=== PATIENT | female | born 2000 | race Caucasian/White ===

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

== ENCOUNTER 2020-04-01 11:18 | Emergency (ER) | payer OTHER ==
[~2020-04-01] VITALS: Ht 154.9 cm; Wt 49.4 kg
[2020-04-01 11:23] VITALS: BP 119/63
--- NOTE | 2020-04-01 11:28 | NUR ---
PT AMBULATED TO BATHROOM, STEADY GAIT.
--- NOTE | 2020-04-01 11:39 | NUR ---
Dr. Batista is evaluating the patient at bedside.
--- NOTE | 2020-04-01 11:40 | NUR ---
19 Y/O FEMALE C/O DIZZINESS AND NAUSEA THAT BEGAN ON WEDNESDAY. DENIES ANY EPISODES OF EMESIS, DIARRHEA, OR VAGINAL BLEEDING. RESP EVEN AND UNLABORED. DENIES ANY PAIN. DENIES COUGH/FEVER/CHILLS. VSS. ABD SOFT/NON DISTENDED. BOWEL SOUNDS NORMOACTIVE IN ALL QUADRANTS.
[2020-04-01 12:04] VITALS: BP 119/63
--- NOTE | 2020-04-01 12:04 | NUR ---
Patient discharged with v/s stable. Written and verbal after care instructions given and explained. Patient alert, oriented and verbalized understanding of instructions. Ambulatory with steady gait. All questions addressed prior to discharge. ID band removed. Patient advised to follow up with PMD. Rx of MECLIZINE HYDROCHLORIDE given. Patient educated on indication of medication including possible reaction and side effects. Opportunity to ask questions provided and answered.
== END 2020-04-01 12:04 | disposition home or self-care (01) ==
LOC: MED 11:18
DX: R42 Dizziness and giddiness (principal); R11.0 Nausea; R51 Headache
CPT/HCPCS: 81002; 81025; 99282

== ENCOUNTER 2020-06-23 17:40 | Emergency (ER) | payer OTHER ==
[~2020-06-23] VITALS: Ht 157.5 cm; Wt 49.9 kg
[2020-06-23 17:47] VITALS: BP 118/75
--- NOTE | 2020-06-23 17:48 | NUR ---
19 YEAR OLD FEMALE COMPLAINS OF HEADACHE, DIZZY, COUGH X 7 DAYS. PT STATES HEADACHE HAS BEEN GETTING WORSE AND RANDOMLY FEELS DIZZY. PT AOX4, BREATHING EVEN AND UNLABORED, SKIN WARM AND DRY. BED IN LOWEST POSITION, LOCKED, BED RAIL UPX1. PMH - DENIES ALLERGIES - NKA
--- NOTE | 2020-06-23 19:00 | NUR ---
Note carlitos in EDM - 06/23/20 at 1902 by KAMAR Patient discharged with v/s stable. Written and verbal after care instructions about back pain, sciatica given and explained. Patient alert, oriented and verbalized understanding of instructions. Ambulatory with steady gait. All questions addressed prior to discharge. ID band removed. Patient advised to follow up with PMD. Rx of naprosyn and robaxin given. Patient educated on indication of medication including possible reaction and side effects. Opportunity to ask questions provided and answered.
--- NOTE | 2020-06-23 19:00 | NUR ---
Patient discharged with v/s stable. Written and verbal after care instructions about upper respiratory infection, covid 19, and 1st trimester given and explained. Patient alert, oriented and verbalized understanding of instructions. Ambulatory with steady gait. All questions addressed prior to discharge. ID band removed. Patient advised to follow up with PMD. Rx of FLUTICASONE, TYLENOL given. Patient educated on indication of medication including possible reaction and side effects. Opportunity to ask questions provided and answered.
[2020-06-23 19:01] VITALS: BP 118/75
== END 2020-06-23 19:00 | disposition home or self-care (01) ==
LOC: MED 17:40
DX: O99.511 Diseases of the respiratory system complicating pregnancy, first trimester (principal); Z20.828 Contact with and (suspected) exposure to other viral communicable diseases; J06.9 Acute upper respiratory infection, unspecified; R42 Dizziness and giddiness
CPT/HCPCS: 81025; 99283; U0003

== ENCOUNTER 2020-07-08 11:25 | Emergency (ER) | payer OTHER ==
[~2020-07-08] VITALS: Ht 154.9 cm; Wt 49.0 kg
[2020-07-08 11:40] VITALS: BP 112/66
--- NOTE | 2020-07-08 11:53 | NUR ---
Dick urbian in [facility] - 07/08/20 at 1159 by JIMMIE PT TAKEN TO BED 10.
--- NOTE | 2020-07-08 11:58 | NUR ---
Patient ambulated to bed 10. RN evaluating patient at bedside.
--- NOTE | 2020-07-08 11:59 | NUR ---
19 YO FEMALE PRESENTS TO THE ER WITH APPROX 8 WKS , A0, PT C/O CONSISTENT NAUSEA AND VOMITING SINCE YESTERDAY. PT STATES DR. ENRIQUE REFFERED HER TO ER. DENIES ANY VAGINAL BLEEDING/DISCHARGE/PAIN. JEEVAN: 02/15/2021. HX: NONE RX: NONE
[2020-07-08 12:02] LABS: BASOPHILS % (AUTO) 0.3 % (0.0-2.0); EOSINOPHILS % (AUTO) 0.4 % (0.0-4.0); HEMATOCRIT 36.8 % (36-48); HEMOGLOBIN 12.8 g/dL (12.0-16.0); LYMPHOCYTES # (AUTO) 2.4 K/uL (2.5-16.5); LYMPHOCYTES % (AUTO) 19.9 % (20.5-51.1); MEAN CORPUSCULAR HEMOGLOBIN 30 pg (27-31); MEAN CORPUSCULAR HGB CONC 35 g/dL (33-37); MEAN CORPUSCULAR VOLUME 87.3 fL (80-94); MONOCYTES # (AUTO) 0.9 K/uL (0.8-1.0); MONOCYTES % (AUTO) 7.1 % (1.7-9.3); NEUTROPHILS # (AUTO) 8.7 K/uL (1.8-7.7); NEUTROPHILS % (AUTO) 72.3 % (42.2-75.2); PLATELET COUNT (AUTO) 213 K/uL (140-450); RED BLOOD CELL COUNT(AUTO) 4.21 MIL/uL (4.20-5.40); RED CELL DISTRIBUTION WIDTH 12.4 % (11.6-13.7)
[2020-07-08] MEDS ORDERED: NACL 0.9% 1,000 ML IV ONE (12:10)
[2020-07-08] MEDS ORDERED: ONDANSETRON 4 MG/2 ML VIAL IVP ONE (12:10)
[2020-07-08 12:19] LABS: ALBUMIN 4.1 g/dL (3.4-5.0); ANION GAP 13.9 (8-16); CARBON DIOXIDE 23.6 mmol/L (21-32); CREATININE 0.4 mg/dL (0.6-1.3); POTASSIUM 3.5 mmol/L (3.5-5.1); TOTAL BILIRUBIN 0.5 mg/dL (0.0-1.0)
[2020-07-08 15:23] VITALS: BP 108/61
--- NOTE | 2020-07-08 15:23 | NUR ---
Patient discharged with v/s stable. Written and verbal after care instructions given and explained. Patient alert, oriented and verbalized understanding of instructions. Ambulatory with steady gait. All questions addressed prior to discharge. ID band removed. Patient advised to follow up with PMD. Rx of Diclegis given. Patient educated on indication of medication including possible reaction and side effects. Opportunity to ask questions provided and answered.
== END 2020-07-08 15:23 | disposition home or self-care (01) ==
LOC: MED 11:25
DX: O21.0 Mild hyperemesis gravidarum (principal); Z3A.08 8 weeks gestation of pregnancy
CPT/HCPCS: 36415; 76801; 80053; 81002; 81025; 85025; 96361; 96374; 99284; J2405; J7030

== ENCOUNTER 2020-08-17 16:47 | Emergency (ER) | payer OTHER ==
[~2020-08-17] VITALS: Ht 157.5 cm; Wt 48.1 kg
[2020-08-17] MEDS ORDERED: ONDANSETRON 4 MG ODT PO ONE (17:20)
[2020-08-17] MEDS ORDERED: ACETAMINOPHEN 325 MG TAB PO ONE (17:20)
[2020-08-17 17:30] VITALS: BP 109/62
--- NOTE | 2020-08-17 17:33 | NUR ---
C/O N/V, LOWER ABD PAIN 6/10 X YESTERDAY. 14 WEEKS. LMP 05/12/20
[2020-08-17 18:15] LABS: APPEARANCE,URINE HAZY (CLEAR); BILIRUBIN,URINE 1+ (NEGATIVE); BLOOD, URINE NEGATIVE (NEGATIVE); COLOR,URINE YELLOW (YELLOW); LEUKOCYTE ESTERASE ,URINE 1+ (NEGATIVE); NITRITE, URINE NEGATIVE (NEGATIVE); PH,URINE 5.5 (5.0-9.0); UGLUCOSE NEGATIVE (NEGATIVE)
[2020-08-17 18:26] LABS: RBC,URINE NONE SEEN /HPF (0-5); WBC,URINE 20-60 /HPF (0-5)
[2020-08-17 19:20] VITALS: BP 121/76
--- NOTE | 2020-08-17 19:20 | NUR ---
Patient discharged with v/s stable. Written and verbal after care instructions given and explained. Patient alert, oriented and verbalized understanding of instructions. Ambulatory with steady gait. All questions addressed prior to discharge. ID band removed. Patient advised to follow up with PMD. Rx of REGLAN, NITROFURANTOIN,DICLEGIS given. Patient educated on indication of medication including possible reaction and side effects. Opportunity to ask questions provided and answered.
== END 2020-08-17 19:20 | disposition home or self-care (01) ==
LOC: MED 16:47
DX: O23.41 Unspecified infection of urinary tract in pregnancy, first trimester (principal); O21.8 Other vomiting complicating pregnancy; O99.351 Diseases of the nervous system complicating pregnancy, first trimester; R51.9 Headache, unspecified; Z3A.14 14 weeks gestation of pregnancy
CPT/HCPCS: 81001; 87086; 99283; Q0162; 84702

== ENCOUNTER 2020-10-24 23:05 | Inpatient (IN) | payer OTHER ==
[~2020-10-24] VITALS: Ht 157.5 cm; Wt 53.1 kg
[2020-10-24 23:30] VITALS: BP 124/64
[2020-10-25 00:48] LABS: APPEARANCE,URINE CLOUDY (CLEAR)
[2020-10-25 00:49] LABS: BILIRUBIN,URINE 1+ (NEGATIVE); BLOOD, URINE 3+ (NEGATIVE); COLOR,URINE RED (YELLOW); NITRITE, URINE NEGATIVE (NEGATIVE); UGLUCOSE NEGATIVE (NEGATIVE)
[2020-10-25 00:50] LABS: LEUKOCYTE ESTERASE ,URINE TRACE (NEGATIVE)
[2020-10-25 00:52] LABS: RBC,URINE TOO NUMEROUS TO COUN /HPF (0-5); WBC,URINE 0-5 /HPF (0-5)
[2020-10-25 00:53] LABS: URINE AMORPHOUS URATE 1+ /HPF (None Seen)
[2020-10-25] MEDS ORDERED: MORPHINE SULFATE 5 MG/ML VIAL IM PRN (01:25)
[2020-10-25] MEDS ORDERED: PROMETHAZINE 25 MG/ML VIAL IM PRN (01:25)
[2020-10-25] MEDS ORDERED: PROMETHAZINE 25 MG/ML VIAL ONE (01:33)
[2020-10-25] MEDS ORDERED: MORPHINE SULFATE 10 MG/ML VIAL ONE ×3 (01:33→19:40)
--- NOTE | 2020-10-25 08:24 | NUR ---
PATIENT HAS BEEN SCREENED AND CATEGORIZED LOW NUTRITION RISK. PATIENT WILL BE SEEN WITHIN 7 DAYS OF ADMISSION. 10/31/[address]
[2020-10-25] MEDS ORDERED: ONDANSETRON 4 MG/2 ML VIAL IVP PRN (10:55)
[2020-10-25 12:36] VITALS: BP 120/73
[2020-10-25] MEDS: NACL 0.9% 1,000 ML IV SCH (19:31)
[2020-10-25] MEDS ORDERED: ceFAZolin 1,000 MG VIAL ONE (23:15)
[2020-10-25] MEDS ORDERED: cefTRIAXone 1,000 MG VIAL ONE (23:22)
[2020-10-26] MEDS ORDERED: MORPHINE SULFATE 10 MG/ML VIAL ONE ×2 (00:03→09:15)
[2020-10-26] MEDS: MORPHINE SULFATE 5 MG/ML VIAL IVP PRN ×2 (00:09→09:20)
[2020-10-26] MEDS: NACL 0.9% 1,000 ML IV SCH (05:48)
[2020-10-26 15:15] LABS: BASOPHILS % (AUTO) 0.3 % (0.0-2.0); EOSINOPHILS % (AUTO) 0.3 % (0.0-4.0); HEMATOCRIT 30.2 % (36-48); HEMOGLOBIN 10.6 g/dL (12.0-16.0); LYMPHOCYTES # (AUTO) 1.2 K/uL (2.5-16.5); LYMPHOCYTES % (AUTO) 13.9 % (20.5-51.1); MEAN CORPUSCULAR HEMOGLOBIN 32 pg (27-31); MEAN CORPUSCULAR HGB CONC 35 g/dL (33-37); MEAN CORPUSCULAR VOLUME 90.9 fL (80-94); MONOCYTES # (AUTO) 0.8 K/uL (0.8-1.0); MONOCYTES % (AUTO) 8.9 % (1.7-9.3); NEUTROPHILS # (AUTO) 6.8 K/uL (1.8-7.7); NEUTROPHILS % (AUTO) 76.6 % (42.2-75.2); PLATELET COUNT (AUTO) 191 K/uL (140-450); RED BLOOD CELL COUNT(AUTO) 3.32 MIL/uL (4.20-5.40); RED CELL DISTRIBUTION WIDTH 12.5 % (11.6-13.7); WHITE BLOOD COUNT (AUTO) 8.9 K/uL (4.5-11.0)
[2020-10-26 15:32] LABS: ALBUMIN 2.8 g/dL (3.4-5.0); ANION GAP 12.4 (8-16); CARBON DIOXIDE 27.2 mmol/L (21-32); CREATININE 0.4 mg/dL (0.6-1.3); POTASSIUM 3.6 mmol/L (3.5-5.1); TOTAL BILIRUBIN 0.1 mg/dL (0.0-1.0)
== END 2020-10-26 16:25 | disposition home or self-care (01) | DRG 566 ==
LOC: MFCC 23:05 → OBSVTOIN 10-25 15:30
PROVIDERS: ADMIT Obstetrics & Gynecology; ATTEND Obstetrics & Gynecology
DX: O23.02 Infections of kidney in pregnancy, second trimester (principal); Z3A.23 23 weeks gestation of pregnancy
CPT/HCPCS: G0378 ×16; 36415; 80053; 81000; 81001; 85025; 87086; 96361; 96372; 96374; 96375; J0690; J0696; J2270; J2550; J7060

== ENCOUNTER 2021-01-20 19:47 | Observation (INO) | payer OTHER, SELFPAY ==
[~2021-01-20] VITALS: Ht 157.5 cm; Wt 59.4 kg
[~2021-01-20 19:47] MED LIST: PNV91TAB8 PO
[2021-01-20 20:00] VITALS: BP 140/70
[2021-01-20] MEDS ORDERED: LACTATED RINGERS 500 ML IV ONE (20:30)
[2021-01-20] MEDS ORDERED: LACTATED RINGERS 1,000 ML IV SCH (20:30)
[2021-01-20] MEDS ORDERED: ONDANSETRON 4 MG/2 ML VIAL IVP PRN (20:50)
[2021-01-20] MEDS ORDERED: MORPHINE SULFATE 5 MG/ML VIAL IVP PRN (20:50)
[2021-01-20 21:07] LABS: APPEARANCE,URINE SL CLOUDY (CLEAR); BILIRUBIN,URINE NEGATIVE (NEGATIVE); BLOOD, URINE 3+ (NEGATIVE); COLOR,URINE YELLOW (YELLOW); LEUKOCYTE ESTERASE ,URINE 3+ (NEGATIVE); NITRITE, URINE NEGATIVE (NEGATIVE); UGLUCOSE NEGATIVE (NEGATIVE)
[2021-01-20] MEDS ORDERED: MORPHINE SULFATE 10 MG/ML VIAL ONE (21:18)
[2021-01-20 21:20] LABS: RBC,URINE 0-5 /HPF (0-5); WBC,URINE 16-25 (MOD) /HPF (0-5)
[2021-01-20 21:22] LABS: URIC ACID CRYSTALS,URINE 0-10 /HPF (None Seen)
[2021-01-20 21:33] VITALS: BP 124/74
[2021-01-20] MEDS ORDERED: cefTRIAXone 1,000 MG VIAL ONE (22:50)
[2021-01-20] MEDS ORDERED: NACL 0.9% 500 ML IV ONE (22:50)
[2021-01-20] MEDS: NACL 0.9% 1,000 ML IV SCH (23:00)
[2021-01-21] MEDS: NACL 0.9% 1,000 ML IV SCH (06:24)
== END 2021-01-21 08:52 | disposition home or self-care (01) ==
LOC: MLD 19:47
PROVIDERS: ADMIT Obstetrics & Gynecology; ATTEND Obstetrics & Gynecology
DX: O62.9 Abnormality of forces of labor, unspecified (principal); Z20.822 Contact with and (suspected) exposure to COVID-19; Z87.440 Personal history of urinary (tract) infections; Z3A.36 36 weeks gestation of pregnancy
CPT/HCPCS: 36415; 76815; 76817; 81001; 82731; 87086; 87426; 87653; 96361; 96374; G0378; J0696; J2270; J2405; J7060

== ENCOUNTER 2021-01-25 00:28 | Observation (INO) | payer OTHER, SELFPAY ==
[~2021-01-25] VITALS: Ht 157.5 cm; Wt 61.2 kg
[2021-01-25 00:51] VITALS: BP 122/74
[2021-01-25] MEDS: LACTATED RINGERS 1,000 ML IV SCH ×3 (02:15→14:10)
[2021-01-25] MEDS ORDERED: MORPHINE SULFATE 4 MG/ML SYR ONE (04:00)
[2021-01-25] MEDS ORDERED: MORPHINE SULFATE 5 MG/ML VIAL IM SCH (04:00)
[2021-01-25] MEDS ORDERED: MORPHINE SULFATE 5 MG/ML VIAL IVP SCH (04:00)
[2021-01-25] MEDS ORDERED: ONDANSETRON 4 MG/2 ML VIAL IVP PRN (04:00)
[2021-01-25] MEDS ORDERED: MORPHINE SULFATE 10 MG/ML VIAL ONE (04:22)
[2021-01-25 04:28] VITALS: BP 124/79
[2021-01-25] MEDS ORDERED: ACETAMINOPHEN 325 MG TAB ONE (05:16)
[2021-01-25] MEDS ORDERED: ACETAMINOPHEN 325 MG TAB PO STA (05:18)
--- NOTE | 2021-01-25 06:38 | NUR ---
PATIENT HAS BEEN SCREENED AND CATEGORIZED LOW NUTRITION RISK. PATIENT WILL BE SEEN WITHIN 7 DAYS OF ADMISSION. 01/31/[address]
[2021-01-25] MEDS ORDERED: NALBUPHINE 10 MG/ML AMP IVP PRN (13:05)
[2021-01-25] MEDS ORDERED: PROMETHAZINE 25 MG/ML VIAL IVP PRN (13:05)
[2021-01-25 17:12] LABS: APPEARANCE,URINE CLEAR (CLEAR); BILIRUBIN,URINE NEGATIVE (NEGATIVE); BLOOD, URINE 2+ (NEGATIVE); COLOR,URINE YELLOW (YELLOW); LEUKOCYTE ESTERASE ,URINE 1+ (NEGATIVE); NITRITE, URINE NEGATIVE (NEGATIVE); UGLUCOSE NEGATIVE (NEGATIVE)
[2021-01-25 17:39] LABS: RBC,URINE 20-50 /HPF (0-5)
[2021-01-25] MEDS ORDERED: NACL 0.9% 1,000 ML IV SCH (18:45)
[2021-01-25] MEDS ORDERED: cefTRIAXone 1,000 MG VIAL ONE (19:29)
== END 2021-01-25 21:47 | disposition home or self-care (01) ==
LOC: MLD 00:28
PROVIDERS: ADMIT Obstetrics & Gynecology; ATTEND Obstetrics & Gynecology
DX: O60.03 Preterm labor without delivery, third trimester (principal); O26.893 Other specified pregnancy related conditions, third trimester; R51.9 Headache, unspecified; Z87.448 Personal history of other diseases of urinary system; Z96.0 Presence of urogenital implants; Z3A.36 36 weeks gestation of pregnancy
CPT/HCPCS: 59025; 81001; 87086; 96361; 96374; 96375; G0378; J0696; J2270; J2300; J2550; J7060

== ENCOUNTER 2021-06-23 11:38 | Emergency (ER) | payer OTHER, SELFPAY ==
[~2021-06-23] VITALS: Ht 154.9 cm; Wt 50.5 kg
[2021-06-23 11:51] VITALS: BP 105/69
[2021-06-23] MEDS ORDERED: NITR100C7 PO (11:55)
--- NOTE | 2021-06-23 12:00 | NUR ---
20 Y/O FEMALE BIB SELF C/O LIGHT VAGINAL BLEEDING X AM G2,P1,MIS/AB0. PAIN 0/10. LMP 05/12/21. PT STATES SPOTTING, NO PAIN UPON URINATION. MEDHX: DENIES NKA
--- NOTE | 2021-06-23 12:51 | NUR ---
WET MOUNT COLLECTED PER ERMD, SPECIMEN SENT TO LAB [facility]
--- NOTE | 2021-06-23 12:51 | NUR ---
Pelvic exam performed by DR WATERS with ASHER FRAZIER at bedside for entire examination. Patient tolerated procedure WELL. Patient assisted to position of comfort after examination.
--- NOTE | 2021-06-23 12:55 | NUR ---
LAB AT BEDSIDE
--- NOTE | 2021-06-23 13:19 | NUR ---
Ultrasound at bedside.
[2021-06-23 14:32] VITALS: BP 105/69
--- NOTE | 2021-06-23 14:32 | NUR ---
Patient discharged with v/s stable. Written and verbal after care instructions given and explained. Patient alert, oriented and verbalized understanding of instructions. Ambulatory with steady gait. All questions addressed prior to discharge. ID band removed. Patient advised to follow up with PMD. Opportunity to ask questions provided and answered.
== END 2021-06-23 14:32 | disposition home or self-care (01) ==
LOC: MED 11:38
DX: O46.91 Antepartum hemorrhage, unspecified, first trimester (principal); Z3A.01 Less than 8 weeks gestation of pregnancy; Z79.899 Other long term (current) drug therapy; Z79.2 Long term (current) use of antibiotics
CPT/HCPCS: 36415; 76801; 84702; 86901; 87210; 99284; Q0092; 81002; 81025

== ENCOUNTER 2022-08-10 14:06 | Inpatient (IN) | payer OTHER ==
[~2022-08-10] VITALS: Ht 157.5 cm; Wt 49.9 kg
[~2022-08-10 14:06] MED LIST changes: +NITR100C7 PO
[2022-08-10 14:14] VITALS: BP 105/63
--- NOTE | 2022-08-10 14:20 | NUR ---
PT AMBULATED TO BED 3. URINE COLLECTED
[2022-08-10 15:24] LABS: BASOPHILS % (AUTO) 0.3 % (0.0-2.0); EOSINOPHILS % (AUTO) 0.4 % (0.0-4.0); HEMATOCRIT 31.2 % (36-48); HEMOGLOBIN 11.1 g/dL (12.0-16.0); LYMPHOCYTES # (AUTO) 1.8 K/uL (2.5-16.5); MEAN CORPUSCULAR HEMOGLOBIN 31 pg (27-31); MEAN CORPUSCULAR HGB CONC 36 g/dL (33-37); MEAN CORPUSCULAR VOLUME 87.3 fL (80-94); MONOCYTES # (AUTO) 0.6 K/uL (0.8-1.0); NEUTROPHILS # (AUTO) 7.4 K/uL (1.8-7.7); NEUTROPHILS % (AUTO) 75.3 % (42.2-75.2); PLATELET COUNT (AUTO) 240 K/uL (140-450); RED BLOOD CELL COUNT(AUTO) 3.57 MIL/uL (4.20-5.40); RED CELL DISTRIBUTION WIDTH 13.8 % (11.6-13.7); WHITE BLOOD COUNT (AUTO) 9.8 K/uL (4.8-10.8)
[2022-08-10 15:49] LABS: ANION GAP 10.8 (8-16); CARBON DIOXIDE 25.9 mmol/L (21-32); CREATININE 0.4 mg/dL (0.6-1.3); POTASSIUM 3.7 mmol/L (3.5-5.1); TOTAL BILIRUBIN 0.2 mg/dL (0.0-1.0)
[2022-08-10] MEDS ORDERED: NACL 0.9% 1,000 ML IV ONE (16:40)
[2022-08-10 16:47] LABS: BILIRUBIN,URINE NEGATIVE (NEGATIVE); BLOOD, URINE NEGATIVE (NEGATIVE); COLOR,URINE YELLOW (YELLOW); LEUKOCYTE ESTERASE ,URINE 2+ (NEGATIVE); NITRITE, URINE NEGATIVE (NEGATIVE); UGLUCOSE NEGATIVE (NEGATIVE)
[2022-08-10 16:55] LABS: APPEARANCE,URINE HAZY (CLEAR)
[2022-08-10] MEDS ORDERED: ACETAMINOPHEN EXTRA STRENGTH 500 MG TAB PO ONE (17:05)
[2022-08-10 17:07] LABS: RBC,URINE NONE SEEN /HPF (0-5)
[2022-08-10] MEDS ORDERED: POTASSIUM CHLORIDE 10 MEQ TABER PO PRN (17:35)
[2022-08-10] MEDS ORDERED: ZOLPIDEM 5 MG TAB PO PRN (17:35)
[2022-08-10] MEDS ORDERED: KCL 20 MEQ/WATER INJ PREMIX 200 ML IV PRN (17:35)
[2022-08-10] MEDS ORDERED: HYDROcodone/APAP 5/325 MG 1 TAB TAB PO PRN (17:35)
[2022-08-10] MEDS ORDERED: ONDANSETRON 4 MG/2 ML VIAL IVP PRN (17:35)
[2022-08-10] MEDS ORDERED: ACETAMINOPHEN 325 MG TAB PO PRN (17:35)
[2022-08-10] MEDS ORDERED: MAG SULF 2000 MG/WATER PREMIX 50 ML IV PRN (17:35)
[2022-08-10] MEDS ORDERED: MORPHINE SULFATE 4 MG/ML SYR IVP PRN (17:35)
[2022-08-10] MEDS ORDERED: cefTRIAXone 1,000 MG VIAL ONE (17:39)
--- NOTE | 2022-08-10 18:40 | NUR ---
PT MOVED TO ER BED 9
[2022-08-10] MEDS: NACL 0.9% 1,000 ML IV SCH (18:47)
--- NOTE | 2022-08-10 19:18 | NUR ---
Pt report given to FREDDIE WALTER. Transfer of care at this time.
--- NOTE | 2022-08-10 23:10 | NUR ---
Patient will be admitted to care of ADRIENNE RASCON. Admited to MED/SURG. Will go to room 125A. Belongings list completed. Report to CECILY FRAZIER. Addendum: 08/10/22 at 2312 by [email or web address] Patient will be admitted to care of ADRIENNE RASCON. Admited to TELEMETRY. Will go to room 125A. Belongings list completed. Report to CECILY FRAZIER
--- NOTE | 2022-08-10 23:20 | NUR ---
RECEIVED PATIENT FROM ER, CAME VIA GURNEY, PATIENT IS AWAKE, ALERT AND ORIENTED X4. NO SIGNS OF DISTRESS NOTED, ON ROOM AIR, DENIES PAIN UPON ASSESSMENT. PATIENT ADMITTED FOR DIAGNOSIS OF PYELONEPHRITIS AND RIGHT HYDRONEPHROSIS, NO KNOWN DRUG ALLERGY, IS CONTINENT OF BOWEL AND BLADDER, USES THE RESTROOM, GAIT IS STEADY. PATIENT HAS IV ACCESS SITE ON LEFT WRIST G20, INTACT AND PATENT, FLUSH WITHOUT RESISTANCE, RUNNING NS @100ML/HR. ORIENTED PATIENT TO ROOM. CALL LIGHT WITHIN REACH, BED LOCKED AND IN LOW POSITION.
[2022-08-11] VITALS: BP 105/65
[2022-08-11 00:39] VITALS: BP 105/65
--- NOTE | 2022-08-11 02:06 | NUR ---
PATIENT IS ASLEEP, NO SIGNS PAIN/DISCOMFORT NOTED, BREATHING EVEN AND NON LABORED ON ROOM AIR. CALL LIGHT WITHIN REACH. SAFETY PRECAUTIONS IN PLACE. WILL CONTINUE TO MONITOR THE PATIENT.
[2022-08-11] MEDS: NACL 0.9% 1,000 ML IV SCH ×3 (03:48→21:51)
[2022-08-11 04:00] VITALS: BP 99/61
--- NOTE | 2022-08-11 04:10 | NUR ---
VITALS TAKEN T 97.9, P 82, BP 99/61, RESP 17 AND O2 SATS 985 ON ROOM AIR. NO SIGNS OF PAIN NOTED, NO SIGNS OF DISTRESS NOTED. CALL LIGHT WITHIN REACH. WILL CONTINUE TO MONITOR THE PATIENT.
[2022-08-11 05:44] LABS: BASOPHILS % (AUTO) 0.5 % (0.0-2.0); EOSINOPHILS # (AUTO) 0.1 K/uL (0-0.4); EOSINOPHILS % (AUTO) 0.7 % (0.0-4.0); HEMATOCRIT 28.3 % (36-48); HEMOGLOBIN 9.9 g/dL (12.0-16.0); LYMPHOCYTES # (AUTO) 2.7 K/uL (2.5-16.5); LYMPHOCYTES % (AUTO) 33.1 % (20.5-51.1); MEAN CORPUSCULAR HEMOGLOBIN 31 pg (27-31); MEAN CORPUSCULAR HGB CONC 35 g/dL (33-37); MEAN CORPUSCULAR VOLUME 87.5 fL (80-94); MONOCYTES # (AUTO) 0.6 K/uL (0.8-1.0); MONOCYTES % (AUTO) 7.6 % (1.7-9.3); NEUTROPHILS # (AUTO) 4.8 K/uL (1.8-7.7); NEUTROPHILS % (AUTO) 58.1 % (42.2-75.2); PLATELET COUNT (AUTO) 203 K/uL (140-450); RED BLOOD CELL COUNT(AUTO) 3.23 MIL/uL (4.20-5.40); WHITE BLOOD COUNT (AUTO) 8.3 K/uL (4.8-10.8)
[2022-08-11 06:18] LABS: ANION GAP 9.5 (8-16); CARBON DIOXIDE 25.8 mmol/L (21-32); CREATININE 0.3 mg/dL (0.6-1.3); POTASSIUM 4.3 mmol/L (3.5-5.1)
--- NOTE | 2022-08-11 07:04 | NUR ---
NO ACUTE EVENT THROUGHOUT THE NIGHT. PATIENT STABLE AND NOT ON ANY DISTRESS. NO COMPLAIN AT THIS TIME. ALL NEEDS ATTENDED. WILL ENDORSE THE PT TO THE ONCOMING NURSE FOR CONTINUITY OF CARE.
--- NOTE | 2022-08-11 07:24 | NUR ---
ENDORSED PATIENT TO DAY NURSE FOR CONTINUITY OF CARE. PATIENT IS STABLE.
--- NOTE | 2022-08-11 10:55 | NUR ---
PATIENT HAS BEEN SCREENED AND CATEGORIZED LOW NUTRITION RISK. PATIENT WILL BE SEEN WITHIN 7 DAYS OF ADMISSION. 08/17/22 REVIEW[address]
--- NOTE | 2022-08-11 19:35 | NUR ---
RECEIVED PT. W/ ON GOING , JESSICA WISEMAN , CALL LIGHT WITHIN REACH , SLEEPING BUT AROUSABLE BY CALLING HER NAME , W/ LA NENA ALLEN - CLEAR U.O , WILL CONT. TO MONITOR . Addendum: 08/12/22 at 0609 by Tory Tobar RN RECIEVED IVF AT [facility] - MINOO
[2022-08-11 20:00] VITALS: BP 100/60
--- NOTE | 2022-08-11 21:50 | NUR ---
PER PHARMACIST - HEP . SODIUM 5, 000 SQ IS SAFE FOR WOMAN . PT REQUESTED TO ADMINISTER THE HEPARIN ON HER R LATERAL UPPER ARM INSTEAD OF ABD. PER PHARMACIST IT IS BETTER ON FATTY AREAS LIKE THIGH BUT IF THE PT INSISTING ON THE UPPER ARM IT IS OK - WILL CARRY OUT . Addendum: 08/11/22 at 2225 by Tory Tobar RN AT 2200 INSPITE OF INFO GIVEN TO PT WHICH BETTER TO GIVE HEP , SQ ON THIGH , BUT THE PT INSISTING TO GIVE IT TO HER R LATERAL UPPER ARM .
[2022-08-12] VITALS: BP 110/76
--- NOTE | 2022-08-12 | NUR ---
ROUNDS , NO COMPLAIN MADE , CALL LIGHT WITHIN REACH .
--- NOTE | 2022-08-12 06:15 | NUR ---
ASK OB STAFF NURSE TO COME HERE TO TAKE FHR , OB STA[facility]UR[facility] .
--- NOTE | 2022-08-12 06:44 | NUR ---
FHR 146 BY DOPPLER TAKEN BY OB STAFF , WILL CONT. TO MONITOR .
--- NOTE | 2022-08-12 07:47 | NUR ---
ENDORSED PT. FOR CONT. OF CARE .
[2022-08-12 08:00] VITALS: BP 100/57
[2022-08-12 08:08] LABS: BASOPHILS % (AUTO) 0.3 % (0.0-2.0); EOSINOPHILS % (AUTO) 0.5 % (0.0-4.0); HEMATOCRIT 29.1 % (36-48); HEMOGLOBIN 10.2 g/dL (12.0-16.0); LYMPHOCYTES # (AUTO) 1.7 K/uL (2.5-16.5); LYMPHOCYTES % (AUTO) 19.1 % (20.5-51.1); MEAN CORPUSCULAR HEMOGLOBIN 31 pg (27-31); MEAN CORPUSCULAR HGB CONC 35 g/dL (33-37); MEAN CORPUSCULAR VOLUME 88.7 fL (80-94); MONOCYTES # (AUTO) 0.5 K/uL (0.8-1.0); MONOCYTES % (AUTO) 5.9 % (1.7-9.3); NEUTROPHILS # (AUTO) 6.7 K/uL (1.8-7.7); NEUTROPHILS % (AUTO) 74.2 % (42.2-75.2); PLATELET COUNT (AUTO) 187 K/uL (140-450); RED BLOOD CELL COUNT(AUTO) 3.28 MIL/uL (4.20-5.40); RED CELL DISTRIBUTION WIDTH 14.3 % (11.6-13.7); WHITE BLOOD COUNT (AUTO) 9.1 K/uL (4.8-10.8)
[2022-08-12 08:32] LABS: ANION GAP 13.5 (8-16); CARBON DIOXIDE 23.2 mmol/L (21-32); CREATININE 0.4 mg/dL (0.6-1.3); POTASSIUM 3.7 mmol/L (3.5-5.1)
--- NOTE | 2022-08-12 09:00 | NUR ---
DC PLANNING LATE ENTRY PT SEEN 08/11 AT 1130AM STANISLAV MET WITH PT AT BEDSIDE TO COMPLETE ASSESSMENT. PT RESIDES IN [place] [facility] WITH HER MOTHER AND CHILD AT THAT ADDRESS LISTED ON FILE. PT IDENTIFIES LAURA HOPPER, MOTHER, EMERGENCY CONTACTS. PT DENIES AD IN PLACE AND DECLINED AD OFFERED BY STANISLAV. PT REPORTS MEETING WITH PCP NEEDED. PATIENT REPORTS REGULAR CHECK UPS. SW SPOKE TO PT ABOUT IMPORTANCE OF FOLLOW UP APPT ONCE DC FROM HOSPITAL, PT RECEPTIVE HOWEVER DECLINED FOR SW TO SCHEDULE FOLLOW UP APPT. PT REPORTS SHE WILL MAKE APPT ON HER OWN.PT REPORTS SHE IS 16 WEEKS AND A 1.5 YR OLD AT HOME. PT DENIES TAKING MEDICATION AT THIS TIME AND DENIES BARRIERS IN ACCESS TO NEEDED MEDICATIONS. PT REPORTS RECEIVING MEDICATION FROM [facility] ON [address] IN [place], WHEN NEEDED. PT REPORTS BEING INDEPENDENT IN ALL ACTIVITIES AND DENIES USE OF DME. PT REPORTS ADEQUATE FOOD IN THE HOME AND REPORTS ADEQUATE FRIEND AND FAMILY SUPPORT. PT REPORTS SHE CURRENTLY HAS A CASE OPEN WITH [employer] FOR [employer] AND WIC.PT DENIES HX OF DIABETES AND DIALYSIS. PT REPORTS DC PLAN IS TO RETURN HOME WITH MOTHER PROVIDING TRANSPORTATION AND AIDING IN REQUIRED CARE, IF NEEDED. Addendum: 08/12/22 at 0901 by Griselda PLASENCIA Amended: Links added.
[2022-08-12] MEDS: NACL 0.9% 1,000 ML IV SCH (09:35)
[2022-08-12] MEDS ORDERED: CIPR500P4 PO (11:09)
[2022-08-12] MEDS ORDERED: CIPR500T4 PO (11:12)
[2022-08-12 12:26] VITALS: BP 100/57
--- NOTE | 2022-08-12 14:23 | NUR ---
DISCHARGE PATIENT IN STABLE CONDITION AFTER NEPHROLOGY DOCUMENT CONSULT REPORT PER PCP ORDER. IV ACCESS, DEUTSCH, WRIST BAND REMOVE BEFORE PATIENT WALK OUT THE FACILITY. DISCHARGE INSTRUCTION GIVEN, DISCHARGE CONSENT SIGNED, AND NURSE VERIFY WITH PATIENT HAS NO QUESTION REGARDING TO AFTER DISCHARGE FOLLOW UP
== END 2022-08-12 14:00 | disposition home or self-care (01) | DRG 566 ==
LOC: MED 14:06 → MMU 17:36 → OBSVTOIN 17:36 → MMU 22:04
PROVIDERS: ADMIT Internal Medicine; ATTEND Internal Medicine
DX: O23.02 Infections of kidney in pregnancy, second trimester (principal); O99.891 Other specified diseases and conditions complicating pregnancy; D64.9 Anemia, unspecified; O99.012 Anemia complicating pregnancy, second trimester; N13.6 Pyonephrosis; E83.42 Hypomagnesemia; Z20.822 Contact with and (suspected) exposure to COVID-19; Z3A.17 17 weeks gestation of pregnancy
CPT/HCPCS: 36415; 76770; 76817; 80048; 80053; 81001; 83735; 84702; 85025; 87040; 87081; 87086; J0696; J1644; J3475; J7060; Q0092

== ENCOUNTER 2022-08-28 17:30 | Observation (INO) | payer OTHER ==
[~2022-08-28] VITALS: Ht 157.5 cm; Wt 52.2 kg
[~2022-08-28 17:30] MED LIST changes: +CIPR500T4 PO; -NITR100C7 PO
[2022-08-28] MEDS ORDERED: ACETAMINOPHEN EXTRA STRENGTH 500 MG TAB PO PRN (18:15)
[2022-08-28] MEDS ORDERED: LACTATED RINGERS 1,000 ML IV SCH (18:15)
[2022-08-28 18:47] VITALS: BP 112/67
[2022-08-28 18:54] LABS: APPEARANCE,URINE CLEAR (CLEAR); BILIRUBIN,URINE NEGATIVE (NEGATIVE); BLOOD, URINE NEGATIVE (NEGATIVE); COLOR,URINE YELLOW (YELLOW); LEUKOCYTE ESTERASE ,URINE NEGATIVE (NEGATIVE); NITRITE, URINE NEGATIVE (NEGATIVE); PH,URINE 8.5 (5.0-9.0); UGLUCOSE NEGATIVE (NEGATIVE)
[2022-08-28 18:54] LABS: BASOPHILS % (AUTO) 0.4 % (0.0-2.0); EOSINOPHILS # (AUTO) 0.1 K/uL (0-0.4); EOSINOPHILS % (AUTO) 0.8 % (0.0-4.0); HEMATOCRIT 31.5 % (36-48); HEMOGLOBIN 11.2 g/dL (12.0-16.0); LYMPHOCYTES # (AUTO) 2.1 K/uL (2.5-16.5); LYMPHOCYTES % (AUTO) 22.9 % (20.5-51.1); MEAN CORPUSCULAR HEMOGLOBIN 32 pg (27-31); MEAN CORPUSCULAR HGB CONC 35 g/dL (33-37); MEAN CORPUSCULAR VOLUME 89.9 fL (80-94); MONOCYTES # (AUTO) 0.7 K/uL (0.8-1.0); NEUTROPHILS # (AUTO) 6.2 K/uL (1.8-7.7); NEUTROPHILS % (AUTO) 67.9 % (42.2-75.2); PLATELET COUNT (AUTO) 219 K/uL (140-450); RED BLOOD CELL COUNT(AUTO) 3.51 MIL/uL (4.20-5.40); RED CELL DISTRIBUTION WIDTH 13.5 % (11.6-13.7); WHITE BLOOD COUNT (AUTO) 9.1 K/uL (4.8-10.8)
[2022-08-28 19:16] LABS: ALBUMIN 3.5 g/dL (3.4-5.0); ANION GAP 9.9 (8-16); CARBON DIOXIDE 26.3 mmol/L (21-32); CREATININE 0.5 mg/dL (0.6-1.3); POTASSIUM 4.2 mmol/L (3.5-5.1); TOTAL BILIRUBIN 0.3 mg/dL (0.0-1.0)
== END 2022-08-28 21:00 | disposition home or self-care (01) ==
LOC: MLD 17:30
PROVIDERS: ADMIT Obstetrics & Gynecology; ATTEND Obstetrics & Gynecology
DX: O26.892 Other specified pregnancy related conditions, second trimester (principal); Z20.822 Contact with and (suspected) exposure to COVID-19; R10.30 Lower abdominal pain, unspecified; O99.891 Other specified diseases and conditions complicating pregnancy; M54.9 Dorsalgia, unspecified; Z3A.19 19 weeks gestation of pregnancy
CPT/HCPCS: 36415; 80053; 81003; 85025; 86886; 86900; 86901; 87081; 87426; 96360; 96361; G0378

== ENCOUNTER 2022-10-29 16:15 | Inpatient (IN) | payer OTHER ==
[~2022-10-29] VITALS: Ht 157.5 cm; Wt 54.4 kg
[2022-10-29 17:22] VITALS: BP 115/73
[2022-10-29] MEDS ORDERED: MORPHINE SULFATE 10 MG/ML VIAL IVP PRN (17:45)
[2022-10-29] MEDS ORDERED: METOCLOPRAMIDE 10 MG/2 ML INJ VIAL IVP PRN (17:45)
[2022-10-29] MEDS: NACL 0.9% 1,000 ML IV SCH ×2 (18:02→22:48)
[2022-10-29 18:16] LABS: BASOPHILS % (AUTO) 0.2 % (0.0-2.0); EOSINOPHILS % (AUTO) 0.3 % (0.0-4.0); HEMATOCRIT 31.9 % (36-48); HEMOGLOBIN 10.9 g/dL (12.0-16.0); LYMPHOCYTES % (AUTO) 10.9 % (20.5-51.1); MEAN CORPUSCULAR HEMOGLOBIN 28 pg (27-31); MEAN CORPUSCULAR HGB CONC 34 g/dL (33-37); MEAN CORPUSCULAR VOLUME 82.9 fL (80-94); MONOCYTES # (AUTO) 0.7 K/uL (0.8-1.0); MONOCYTES % (AUTO) 7.2 % (1.7-9.3); NEUTROPHILS # (AUTO) 7.8 K/uL (1.8-7.7); NEUTROPHILS % (AUTO) 81.4 % (42.2-75.2); PLATELET COUNT (AUTO) 203 K/uL (140-450); RED BLOOD CELL COUNT(AUTO) 3.85 MIL/uL (4.20-5.40); WHITE BLOOD COUNT (AUTO) 9.6 K/uL (4.8-10.8)
[2022-10-29] MEDS ORDERED: PANTOPRAZOLE 40 MG INJ VIAL ONE (18:24)
[2022-10-29] MEDS ORDERED: ONDANSETRON 4 MG/2 ML VIAL IVP PRN (18:25)
[2022-10-29] MEDS: PANTOPRAZOLE 40 MG INJ VIAL IVP SCH (18:30)
[2022-10-29] MEDS: FAMOTIDINE 20 MG/2 ML VIAL IV SCH (18:31)
[2022-10-29 18:32] VITALS: BP 105/73
[2022-10-29 18:37] LABS: ALBUMIN 3.2 g/dL (3.4-5.0); ANION GAP 15.4 (8-16); CARBON DIOXIDE 22.4 mmol/L (21-32); CREATININE 0.4 mg/dL (0.6-1.3); POTASSIUM 3.8 mmol/L (3.5-5.1); TOTAL BILIRUBIN 0.3 mg/dL (0.0-1.0)
[2022-10-30] MEDS: NACL 0.9% 1,000 ML IV SCH ×2 (07:56→17:54)
[2022-10-30] MEDS ORDERED: PANTOPRAZOLE 40 MG INJ VIAL IVP SCH (09:00)
[2022-10-30] MEDS: PANTOPRAZOLE 40 MG INJ VIAL IVP SCH (09:11)
--- NOTE | 2022-10-30 09:43 | NUR ---
PATIENT HAS BEEN SCREENED AND CATEGORIZED LOW NUTRITION RISK. PATIENT WILL BE SEEN WITHIN 7 DAYS OF ADMISSION. 11/05/22 REVIEWED BY MAIK WAGNER RD
[2022-10-30 12:14] LABS: APPEARANCE,URINE HAZY (CLEAR); BILIRUBIN,URINE NEGATIVE (NEGATIVE); BLOOD, URINE NEGATIVE (NEGATIVE); COLOR,URINE YELLOW (YELLOW); LEUKOCYTE ESTERASE ,URINE 3+ (NEGATIVE); NITRITE, URINE NEGATIVE (NEGATIVE); PH,URINE 6.5 (5.0-9.0); UGLUCOSE NEGATIVE (NEGATIVE)
[2022-10-30 12:22] LABS: RBC,URINE 0 /HPF (0-5)
[2022-10-30] MEDS: FAMOTIDINE 20 MG/2 ML VIAL IV SCH (17:50)
[2022-10-31] MEDS: NACL 0.9% 1,000 ML IV SCH (05:10)
[2022-10-31] MEDS: PANTOPRAZOLE 40 MG INJ VIAL IVP SCH (09:53)
== END 2022-10-31 11:55 | disposition home or self-care (01) | DRG 566 ==
LOC: MLD 16:15 → MFCC 10-30 02:10 → OBSVTOIN 10-31 00:01
PROVIDERS: ADMIT Obstetrics & Gynecology; ATTEND Obstetrics & Gynecology
DX: O23.02 Infections of kidney in pregnancy, second trimester (principal); J45.909 Unspecified asthma, uncomplicated; Z20.822 Contact with and (suspected) exposure to COVID-19; Z3A.26 26 weeks gestation of pregnancy; Z86.73 Personal history of transient ischemic attack (TIA), and cerebral infarction without residual deficits; Z87.442 Personal history of urinary calculi
CPT/HCPCS: G0378 ×32; 36415; 76705; 76770; 76805; 76819; 80053; 81001; 85025; 87086; C9113; J0696; J2270; J2765; J3490; J7060; Q0092

== ENCOUNTER 2022-11-06 16:39 | Observation (INO) | payer OTHER ==
[~2022-11-06] VITALS: Ht 157.5 cm; Wt 58.1 kg
[2022-11-06 17:50] LABS: BILIRUBIN,URINE NEGATIVE (NEGATIVE); BLOOD, URINE NEGATIVE (NEGATIVE); COLOR,URINE YELLOW (YELLOW); LEUKOCYTE ESTERASE ,URINE 2+ (NEGATIVE); NITRITE, URINE NEGATIVE (NEGATIVE); UGLUCOSE NEGATIVE (NEGATIVE)
[2022-11-06] MEDS ORDERED: ONDANSETRON 4 MG/2 ML VIAL IVP PRN (17:55)
[2022-11-06] MEDS ORDERED: LACTATED RINGERS 1,000 ML IV SCH (17:55)
[2022-11-06] MEDS ORDERED: MORPHINE SULFATE 4 MG/ML SYR IVP PRN (18:00)
[2022-11-06 18:12] LABS: BASOPHILS % (AUTO) 0.2 % (0.0-2.0); EOSINOPHILS % (AUTO) 0.2 % (0.0-4.0); HEMATOCRIT 28.9 % (36-48); HEMOGLOBIN 9.9 g/dL (12.0-16.0); LYMPHOCYTES # (AUTO) 1.7 K/uL (2.5-16.5); MEAN CORPUSCULAR HEMOGLOBIN 28 pg (27-31); MEAN CORPUSCULAR HGB CONC 34 g/dL (33-37); MEAN CORPUSCULAR VOLUME 81.1 fL (80-94); MONOCYTES # (AUTO) 0.9 K/uL (0.8-1.0); NEUTROPHILS # (AUTO) 9.6 K/uL (1.8-7.7); NEUTROPHILS % (AUTO) 78.6 % (42.2-75.2); PLATELET COUNT (AUTO) 215 K/uL (140-450); RED BLOOD CELL COUNT(AUTO) 3.56 MIL/uL (4.20-5.40); RED CELL DISTRIBUTION WIDTH 13.2 % (11.6-13.7); WHITE BLOOD COUNT (AUTO) 12.2 K/uL (4.8-10.8)
[2022-11-06] MEDS: NACL 0.9% 1,000 ML IV SCH (18:13)
[2022-11-06 18:24] LABS: APPEARANCE,URINE HAZY (CLEAR)
[2022-11-06 18:36] LABS: ALBUMIN 3.1 g/dL (3.4-5.0); ANION GAP 12.4 (8-16); CARBON DIOXIDE 24.6 mmol/L (21-32); CREATININE 0.6 mg/dL (0.6-1.3); TOTAL BILIRUBIN 0.2 mg/dL (0.0-1.0)
[2022-11-06 18:58] LABS: RBC,URINE NONE SEEN /HPF (0-5)
[2022-11-07] MEDS ORDERED: POTASSIUM CHLORIDE 10 MEQ TABER PO SCH ×2 (00:45→05:50)
[2022-11-07] MEDS: NACL 0.9% 1,000 ML IV SCH ×4 (00:57→22:47)
[2022-11-08] MEDS: NACL 0.9% 1,000 ML IV SCH (06:13)
--- NOTE | 2022-11-08 09:28 | NUR ---
PATIENT HAS BEEN SCREENED AND CATEGORIZED LOW NUTRITION RISK. PATIENT WILL BE SEEN WITHIN 7 DAYS OF ADMISSION. 11/06/22-11/13/[address]
== END 2022-11-08 13:30 | disposition home or self-care (01) ==
LOC: MLD 16:39
PROVIDERS: ADMIT Obstetrics & Gynecology; ATTEND Obstetrics & Gynecology
DX: O23.03 Infections of kidney in pregnancy, third trimester (principal); Z20.822 Contact with and (suspected) exposure to COVID-19; O23.43 Unspecified infection of urinary tract in pregnancy, third trimester; Z3A.28 28 weeks gestation of pregnancy
CPT/HCPCS: 36415; 59025; 76770; 76805; 80053; 81001; 84132; 85025; 87086; 87426; 96361; 96365; 96366; G0378; J0696; J7060; Q0092

== ENCOUNTER 2022-12-05 21:35 | Inpatient (IN) | payer OTHER ==
[~2022-12-05] VITALS: Ht 157.5 cm; Wt 59.0 kg
[~2022-12-05 21:35] MED LIST changes: -CIPR500T4 PO
[2022-12-05 22:13] VITALS: BP 123/77
[2022-12-05 22:29] LABS: BILIRUBIN,URINE NEGATIVE (NEGATIVE); BLOOD, URINE NEGATIVE (NEGATIVE); COLOR,URINE YELLOW (YELLOW); LEUKOCYTE ESTERASE ,URINE 1+ (NEGATIVE); NITRITE, URINE NEGATIVE (NEGATIVE); UGLUCOSE NEGATIVE (NEGATIVE)
[2022-12-05 22:45] LABS: APPEARANCE,URINE SLIGHTLY HAZY (CLEAR)
[2022-12-05 22:46] LABS: RBC,URINE 0-5 /HPF (0-5)
[2022-12-05] MEDS: NACL 0.9% 1,000 ML IV SCH (23:53)
[2022-12-05] MEDS ORDERED: cefTRIAXone 1,000 MG VIAL ONE (23:56)
[2022-12-06] MEDS ORDERED: HYDROcodone/APAP 5/325 MG 1 TAB TAB PO PRN (00:35)
[2022-12-06] MEDS ORDERED: ONDANSETRON 4 MG/2 ML VIAL IVP PRN (00:35)
[2022-12-06] MEDS ORDERED: MORPHINE SULFATE 10 MG/ML SYR IVP PRN (01:05)
--- NOTE | 2022-12-06 09:11 | NUR ---
PATIENT HAS BEEN SCREENED AND CATEGORIZED LOW NUTRITION RISK. PATIENT WILL BE SEEN WITHIN 7 DAYS OF ADMISSION. 12/05/22-12/12/[address]
[2022-12-06] MEDS: NACL 0.9% 1,000 ML IV SCH ×2 (09:15→18:40)
[2022-12-07] MEDS: NACL 0.9% 1,000 ML IV SCH (04:30)
== END 2022-12-07 12:19 | disposition home or self-care (01) | DRG 566 ==
LOC: MLD 21:35 → MFCC 12-06 00:15 → OBSVTOIN 12-06 00:44
PROVIDERS: ADMIT Obstetrics & Gynecology; ATTEND Obstetrics & Gynecology
DX: O23.03 Infections of kidney in pregnancy, third trimester (principal); Z20.822 Contact with and (suspected) exposure to COVID-19; Z3A.32 32 weeks gestation of pregnancy; N12 Tubulo-interstitial nephritis, not specified as acute or chronic
CPT/HCPCS: G0378 ×3; 76815; 81001; 87086; J0696; J7060; Q0092

== ENCOUNTER 2022-12-30 17:02 | Inpatient (IN) | payer OTHER ==
[~2022-12-30] VITALS: Ht 157.5 cm; Wt 61.2 kg
[2022-12-30] MEDS ORDERED: MORPHINE SULFATE 4 MG/ML SYR IVP PRN (20:10)
[2022-12-30] MEDS ORDERED: ONDANSETRON 4 MG/2 ML VIAL IVP PRN (20:10)
[2022-12-30 20:31] VITALS: BP 120/72
[2022-12-30] MEDS ORDERED: cefTRIAXone 1,000 MG VIAL ONE (21:12)
[2022-12-30 21:21] LABS: ALBUMIN 2.7 g/dL (3.4-5.0); ANION GAP 9.7 (8-16); CARBON DIOXIDE 26.5 mmol/L (21-32); CREATININE 0.6 mg/dL (0.6-1.3); POTASSIUM 4.2 mmol/L (3.5-5.1); TOTAL BILIRUBIN 0.2 mg/dL (0.0-1.0)
[2022-12-30] MEDS: NACL 0.9% 1,000 ML IV SCH (21:30)
[2022-12-31] MEDS: BETAMETH ACET/BETAMETH NA PH 30 MG/5 ML VIAL IM SCH (07:41)
[2022-12-31] MEDS: NACL 0.9% 1,000 ML IV SCH ×2 (08:34→16:38)
--- NOTE | 2022-12-31 08:35 | NUR ---
PATIENT HAS BEEN SCREENED AND CATEGORIZED LOW NUTRITION RISK. PATIENT WILL BE SEEN WITHIN 7 DAYS OF ADMISSION. 12/30/22-01/06/23 REVIEWED [address] MAIK WAGNER RD
[2022-12-31 10:59] LABS: BASOPHILS % (AUTO) 0.2 % (0.0-2.0); EOSINOPHILS % (AUTO) 0.1 % (0.0-4.0); HEMATOCRIT 26.8 % (36-48); HEMOGLOBIN 8.8 g/dL (12.0-16.0); LYMPHOCYTES # (AUTO) 1.3 K/uL (2.5-16.5); LYMPHOCYTES % (AUTO) 12.6 % (20.5-51.1); MEAN CORPUSCULAR HEMOGLOBIN 24 pg (27-31); MEAN CORPUSCULAR HGB CONC 33 g/dL (33-37); MEAN CORPUSCULAR VOLUME 71.9 fL (80-94); MONOCYTES # (AUTO) 0.3 K/uL (0.8-1.0); MONOCYTES % (AUTO) 2.6 % (1.7-9.3); NEUTROPHILS # (AUTO) 8.7 K/uL (1.8-7.7); NEUTROPHILS % (AUTO) 84.5 % (42.2-75.2); PLATELET COUNT (AUTO) 172 K/uL (140-450); RED BLOOD CELL COUNT(AUTO) 3.73 MIL/uL (4.20-5.40); WHITE BLOOD COUNT (AUTO) 10.3 K/uL (4.8-10.8)
[2022-12-31 11:09] LABS: APPEARANCE,URINE CLEAR (CLEAR); BILIRUBIN,URINE NEGATIVE (NEGATIVE); BLOOD, URINE NEGATIVE (NEGATIVE); COLOR,URINE YELLOW (YELLOW); LEUKOCYTE ESTERASE ,URINE NEGATIVE (NEGATIVE); NITRITE, URINE NEGATIVE (NEGATIVE); UGLUCOSE NEGATIVE (NEGATIVE)
[2022-12-31] MEDS ORDERED: SODIUM FERRIC GLUCONATE 125 MG in NACL 0.9% 100 ML IV SCH (12:30)
[2022-12-31] MEDS: NIFEdipine 10 MG CAPLF PO SCH ×2 (17:43→23:46)
[2023-01-01] MEDS: NIFEdipine 10 MG CAPLF PO SCH ×2 (05:48→11:39)
[2023-01-01] MEDS: NACL 0.9% 1,000 ML IV SCH (05:54)
[2023-01-01] MEDS ORDERED: BETAMETH ACET/BETAMETH NA PH 30 MG/5 ML VIAL IM ONE (07:46)
[2023-01-01] MEDS: BETAMETH ACET/BETAMETH NA PH 30 MG/5 ML VIAL IM SCH (07:54)
== END 2023-01-01 12:04 | disposition home or self-care (01) | DRG 566 ==
LOC: MLD 17:02 → OBSVTOIN 12-31 06:45
PROVIDERS: ADMIT Obstetrics & Gynecology; ATTEND Obstetrics & Gynecology
PROC: 3E0333Z Introduction of Anti-inflammatory into Peripheral Vein, Percutaneous Approach (ICD-10-PCS; principal; 2022-12-31)
DX: O60.03 Preterm labor without delivery, third trimester (principal); O23.43 Unspecified infection of urinary tract in pregnancy, third trimester; Z20.822 Contact with and (suspected) exposure to COVID-19; Z3A.36 36 weeks gestation of pregnancy; N39.0 Urinary tract infection, site not specified; O99.013 Anemia complicating pregnancy, third trimester
CPT/HCPCS: G0378 ×7; 36415; 80053; 81003; 85025; 87086; J0696; J0702; J2270; J2405; J2916; J7060

== ENCOUNTER 2023-01-03 20:01 | Inpatient (IN) | payer OTHER ==
[~2023-01-03] VITALS: Ht 157.5 cm; Wt 61.2 kg
[2023-01-03 22:14] LABS: BILIRUBIN,URINE NEGATIVE (NEGATIVE); BLOOD, URINE NEGATIVE (NEGATIVE); COLOR,URINE YELLOW (YELLOW); LEUKOCYTE ESTERASE ,URINE 1+ (NEGATIVE); NITRITE, URINE NEGATIVE (NEGATIVE); PH,URINE 6.5 (5.0-9.0); UGLUCOSE NEGATIVE (NEGATIVE)
[2023-01-03 22:23] LABS: ALBUMIN 2.4 g/dL (3.4-5.0); ANION GAP 10.3 (8-16); BASOPHILS % (AUTO) 0.1 % (0.0-2.0); CARBON DIOXIDE 24.8 mmol/L (21-32); CREATININE 0.5 mg/dL (0.6-1.3); EOSINOPHILS % (AUTO) 0.1 % (0.0-4.0); HEMATOCRIT 26.3 % (36-48); HEMOGLOBIN 8.8 g/dL (12.0-16.0); LYMPHOCYTES # (AUTO) 2.1 K/uL (2.5-16.5); LYMPHOCYTES % (AUTO) 20.5 % (20.5-51.1); MEAN CORPUSCULAR HEMOGLOBIN 24 pg (27-31); MEAN CORPUSCULAR HGB CONC 33 g/dL (33-37); MEAN CORPUSCULAR VOLUME 72.2 fL (80-94); MONOCYTES # (AUTO) 0.9 K/uL (0.8-1.0); MONOCYTES % (AUTO) 8.6 % (1.7-9.3); NEUTROPHILS # (AUTO) 7.3 K/uL (1.8-7.7); NEUTROPHILS % (AUTO) 70.7 % (42.2-75.2); PLATELET COUNT (AUTO) 184 K/uL (140-450); POTASSIUM 3.1 mmol/L (3.5-5.1); RED BLOOD CELL COUNT(AUTO) 3.65 MIL/uL (4.20-5.40); RED CELL DISTRIBUTION WIDTH 15.9 % (11.6-13.7); TOTAL BILIRUBIN 0.2 mg/dL (0.0-1.0); WHITE BLOOD COUNT (AUTO) 10.3 K/uL (4.8-10.8)
[2023-01-03 22:25] LABS: APPEARANCE,URINE HAZY (CLEAR)
[2023-01-03] MEDS: NACL 0.9% 500 ML IV SCH (22:30)
[2023-01-03] MEDS: MORPHINE SULFATE 4 MG/ML SYR IVP PRN (22:32)
[2023-01-03 22:34] LABS: RBC,URINE 0-5 /HPF (0-5)
[2023-01-03] MEDS ORDERED: cefTRIAXone 1,000 MG VIAL ONE (22:43)
[2023-01-03] MEDS: NIFEdipine 10 MG CAPLF PO SCH (23:13)
[2023-01-03 23:25] VITALS: BP 98/57
[2023-01-04] MEDS: NACL 0.9% 500 ML IV SCH (00:55)
[2023-01-04] MEDS: MORPHINE SULFATE 4 MG/ML SYR IVP PRN (01:27)
[2023-01-04] MEDS ORDERED: KCL 20 MEQ IN 100 mL PREMIX 200 ML IV ONE (04:55)
[2023-01-04] MEDS: NIFEdipine 10 MG CAPLF PO SCH ×4 (05:15→23:10)
[2023-01-04] MEDS: KCL 20 MEQ IN 100 mL PREMIX 200 ML IV SCH ×2 (05:19→08:57)
--- NOTE | 2023-01-04 09:14 | NUR ---
PATIENT HAS BEEN SCREENED AND CATEGORIZED LOW NUTRITION RISK. PATIENT WILL BE SEEN WITHIN 7 DAYS OF ADMISSION. 01/10/23 [address]VIEW[address] MAIK WAGNER RD
[2023-01-04] MEDS: NACL 0.9% 1,000 ML IV SCH ×2 (11:33→18:02)
[2023-01-04] MEDS ORDERED: MORPHINE SULFATE 10 MG/ML VIAL ONE ×2 (17:16→22:57)
[2023-01-04] MEDS ORDERED: ONDANSETRON 4 MG/2 ML VIAL ONE (17:17)
[2023-01-04] MEDS: MORPHINE SULFATE 5 MG/ML VIAL IVP PRN ×2 (17:24→23:09)
[2023-01-04] MEDS: ONDANSETRON 4 MG/2 ML VIAL IVP PRN (23:09)
[2023-01-04] MEDS ORDERED: cefTRIAXone 1,000 MG VIAL ONE (23:39)
[2023-01-05] MEDS: NACL 0.9% 1,000 ML IV SCH ×4 (00:40→20:55)
[2023-01-05] MEDS: NIFEdipine 10 MG CAPLF PO SCH ×3 (05:44→17:42)
[2023-01-05] MEDS ORDERED: MORPHINE SULFATE 10 MG/ML VIAL ONE (13:06)
[2023-01-05] MEDS: ONDANSETRON 4 MG/2 ML VIAL IVP PRN (13:11)
[2023-01-05] MEDS: MORPHINE SULFATE 5 MG/ML VIAL IVP PRN (13:12)
[2023-01-05] MEDS ORDERED: cefTRIAXone 1,000 MG VIAL ONE (23:39)
[2023-01-06] MEDS: NACL 0.9% 1,000 ML IV SCH ×4 (04:06→22:51)
[2023-01-06] MEDS ORDERED: METHYLERGONOVINE 0.2 MG/ML AMP IM PRN (09:50)
[2023-01-06] MEDS ORDERED: CARBOPROST 250 MCG/ML AMP IM PRN (09:50)
[2023-01-06] MEDS ORDERED: OXYTOCIN 20 UNITS in LACTATED RINGERS 1,000 ML IV SCH (09:50)
[2023-01-06 10:58] LABS: PROTHROMBIN TIME 9.2 secs (10.8-13.4)
[2023-01-06] MEDS ORDERED: ROPIVACAINE 0.2%/NS PREMIX 200 ML EPI ONE (20:27)
[2023-01-06] MEDS ORDERED: fentaNYL citrate 0.05 MG/ML VIAL ONE (20:27)
[2023-01-07] MEDS ORDERED: OXYTOCIN 20 UNITS/LR PREMIX 1,000 ML IV ONE (05:32)
[2023-01-07] MEDS ORDERED: IBUPROFEN 800 MG TAB PO PRN (10:45)
[2023-01-07] MEDS ORDERED: METHYLERGONOVINE 0.2 MG TAB PO PRN (10:45)
[2023-01-07] MEDS ORDERED: IBUPROFEN 600 MG TAB PO PRN (10:45)
[2023-01-07] MEDS ORDERED: MEASLES, MUMPS, AND RUBELLA 1 VIAL SQVAC ONE (10:45)
[2023-01-07] MEDS ORDERED: DOCUSATE SODIUM 100 MG GELCAP PO PRN (10:45)
[2023-01-07] MEDS ORDERED: BENZOCAINE/MENTHOL 20%-0.5% 60 GM CAN TP PRN (10:45)
[2023-01-07] MEDS ORDERED: MEASLES, MUMPS, AND RUBELLA 1 VIAL SQVAC SCH (11:05)
[2023-01-07] MEDS ORDERED: METHYLERGONOVINE 0.2 MG/ML AMP IM PRN (18:45)
[2023-01-08 09:26] LABS: HEMATOCRIT 25.3 % (36-48); HEMOGLOBIN 8.2 g/dL (12.0-16.0)
[2023-01-08] MEDS ORDERED: FERR325E14 PO (13:09)
[2023-01-08] MEDS ORDERED: ASCO500T95 PO (13:09)
[2023-01-08] MEDS ORDERED: MIRABULK PO (13:09)
== END 2023-01-08 13:50 | disposition home or self-care (01) | DRG 560 ==
LOC: MLD 20:01 → OBSVTOIN 01-04 17:47 → MFCC 01-07 10:10
PROVIDERS: ADMIT Obstetrics & Gynecology; ATTEND Obstetrics & Gynecology
PROC: 10D07Z6 Extraction of Products of Conception, Vacuum, Via Natural or Artificial Opening (ICD-10-PCS; principal; 2023-01-07)
PROC: 0KQM0ZZ Repair Perineum Muscle, Open Approach (ICD-10-PCS; 2023-01-07)
PROC: 3E0R3BZ Introduction of Anesthetic Agent into Spinal Canal, Percutaneous Approach (ICD-10-PCS; 2023-01-07)
PROC: 00HU33Z Insertion of Infusion Device into Spinal Canal, Percutaneous Approach (ICD-10-PCS; 2023-01-07)
DX: O60.14X0 Preterm labor third trimester with preterm delivery third trimester, not applicable or unspecified (principal); Z37.0 Single live birth; N13.6 Pyonephrosis; D62 Acute posthemorrhagic anemia; O98.82 Other maternal infectious and parasitic diseases complicating childbirth; O99.284 Endocrine, nutritional and metabolic diseases complicating childbirth; O75.81 Maternal exhaustion complicating labor and delivery; O70.1 Second degree perineal laceration during delivery; E87.6 Hypokalemia; Z20.822 Contact with and (suspected) exposure to COVID-19; O90.81 Anemia of the puerperium; Z3A.36 36 weeks gestation of pregnancy
CPT/HCPCS: G0378 ×4; 36415; 51702; 76770; 80053; 81001; 85018; 85025; 85610; 85730; 86592; 86762; 86886; 86900; 86901; 87086; 87340; 87653-90; 93970; J0696; J2270; J2405; J2590; J2795; J3010; J3480; J7060; J7120; Q0092

== ENCOUNTER 2023-08-31 19:18 | Emergency (ER) | payer OTHER ==
[~2023-08-31] VITALS: Ht 157.5 cm; Wt 52.2 kg
[~2023-08-31 19:18] MED LIST changes: +ASCO500T95 PO; +FERR325E14 PO; +MIRABULK PO; -PNV91TAB8 PO
[2023-08-31 19:36] VITALS: BP 116/70; PULSE 105; RESP 18; TEMP 97.9; O2SAT 97
[2023-08-31] MEDS ORDERED: ONDANSETRON 4 MG/2 ML VIAL IVP ONE (20:20)
[2023-08-31] MEDS ORDERED: NACL 0.9% 1,000 ML IV ONE (20:20)
[2023-08-31] MEDS ORDERED: cefTRIAXone 1,000 MG VIAL ONE (20:39)
[2023-08-31 20:43] LABS: BASOPHILS % (AUTO) 0.3 % (0.0-2.0); EOSINOPHILS % (AUTO) 0.1 % (0.0-4.0); HEMATOCRIT 35.6 % (36-48); HEMOGLOBIN 11.9 g/dL (12.0-16.0); LYMPHOCYTES # (AUTO) 0.9 K/uL (2.5-16.5); LYMPHOCYTES % (AUTO) 14.1 % (20.5-51.1); MEAN CORPUSCULAR HEMOGLOBIN 25 pg (27-31); MEAN CORPUSCULAR HGB CONC 34 g/dL (33-37); MEAN CORPUSCULAR VOLUME 73.2 fL (80-94); MONOCYTES # (AUTO) 0.9 K/uL (0.8-1.0); MONOCYTES % (AUTO) 14.4 % (1.7-9.3); NEUTROPHILS # (AUTO) 4.5 K/uL (1.8-7.7); NEUTROPHILS % (AUTO) 71.1 % (42.2-75.2); PLATELET COUNT (AUTO) 232 K/uL (140-450); RED BLOOD CELL COUNT(AUTO) 4.86 MIL/uL (4.20-5.40); WHITE BLOOD COUNT (AUTO) 6.3 K/uL (4.8-10.8)
[2023-08-31 20:45] LABS: APPEARANCE,URINE SL CLOUDY (CLEAR); BILIRUBIN,URINE 1+ (NEGATIVE); BLOOD, URINE NEGATIVE (NEGATIVE); COLOR,URINE YELLOW (YELLOW); LEUKOCYTE ESTERASE ,URINE NEGATIVE (NEGATIVE); NITRITE, URINE POSITIVE (NEGATIVE); PROTEIN,URINE 2+ (NEGATIVE); UGLUCOSE NEGATIVE (NEGATIVE); UROBILINOGEN,URINE 0.2 EU/dL (0.2 - 1)
[2023-08-31 20:48] LABS: ICTOTEST NEGATIVE (NEGATIVE)
[2023-08-31 20:54] LABS: BACTERIA,URINE 2+ /HPF (None Seen); MUCUS,URINE None Seen /LPF (None Seen); RBC,URINE 0-5 /HPF (0-5); SQUAMOUS EPITHELIAL CELL,UR 4-10 (MOD) /LPF (0-3 (FEW)); WBC,URINE 0-5 /HPF (0-5)
[2023-08-31 20:58] LABS: ANION GAP 13.5 (8-16); CALCIUM 9.3 mg/dL (8.5-10.1); CARBON DIOXIDE 27.1 mmol/L (21-32); CREATININE 0.6 mg/dL (0.6-1.3); POTASSIUM 3.6 mmol/L (3.5-5.1)
[2023-08-31 21:03] LABS: ALBUMIN 3.9 g/dL (3.4-5.0); BILIRUBIN,DIRECT 0.1 mg/dL (0.0-0.3); PARTIAL THROMBOPLASTIN TIME 28.7 secs (22-35.6); PROTHROMBIN TIME 10.5 secs (10.8-13.4); TOTAL BILIRUBIN 0.2 mg/dL (0.0-1.0); TOTAL PROTEIN, SERUM 9.3 g/dL (6.4-8.2)
[2023-08-31 21:06] LABS: LACTIC ACID 0.9 mmol/L (0.4-2.0)
[2023-08-31 22:08] LABS: FLU A ANTIGEN negative (NEGATIVE); FLU B ANTIGEN NEGATIVE (NEGATIVE)
[2023-08-31] MEDS ORDERED: CIPR500T4 PO ×2 (22:15→22:22)
[2023-08-31] MEDS ORDERED: PYR100 PO ×2 (22:15→22:22)
[2023-08-31] MEDS ORDERED: ACET-10509 PO ×2 (22:15→22:22)
[2023-08-31] MEDS ORDERED: TAM75 PO ×2 (22:17→22:22)
[2023-08-31] MEDS ORDERED: KETOROLAC 30 MG/ML VIAL IVP ONE (22:20)
== END 2023-08-31 23:10 | disposition home or self-care (01) ==
LOC: MED 19:18
DX: N12 Tubulo-interstitial nephritis, not specified as acute or chronic (principal); J06.9 Acute upper respiratory infection, unspecified; Z20.828 Contact with and (suspected) exposure to other viral communicable diseases; Z20.822 Contact with and (suspected) exposure to COVID-19; Z79.899 Other long term (current) drug therapy; Z79.2 Long term (current) use of antibiotics
CPT/HCPCS: 36415; 80048; 80076; 81001; 83605; 83690; 85025; 85610; 85730; 87040; 87086; 87426; 87804; 96365; 96375; 99284; J0696; J1885; J2405; J7030

== ENCOUNTER 2024-01-25 19:49 | Emergency (ER) | payer OTHER ==
[~2024-01-25] VITALS: Ht 157.5 cm; Wt 52.6 kg
[~2024-01-25 19:49] MED LIST changes: +ACET-10509 PO; +CIPR500T4 PO; +PYR100 PO; +TAM75 PO
[2024-01-25 19:55] VITALS: BP 125/79; PULSE 98; RESP 16; TEMP 96.8; O2SAT 98
[2024-01-25 21:24] VITALS: BP 112/68; PULSE 77; RESP 15; O2SAT 99
[2024-01-26] MEDS: NACL 0.9% 1,000 ML IV ONE (00:01)
[2024-01-26] MEDS: ONDANSETRON 4 MG/2 ML VIAL IVP ONE (00:02)
[2024-01-26] MEDS: KETOROLAC 30 MG/ML VIAL IVP ONE (00:03)
[2024-01-26 00:07] VITALS: O2SAT 99
[2024-01-26 00:18] LABS: APPEARANCE,URINE CLEAR (CLEAR); BILIRUBIN,URINE NEGATIVE (NEGATIVE); BLOOD, URINE NEGATIVE (NEGATIVE); COLOR,URINE YELLOW (YELLOW); LEUKOCYTE ESTERASE ,URINE 3+ (NEGATIVE); NITRITE, URINE POSITIVE (NEGATIVE); PROTEIN,URINE 1+ (NEGATIVE); UGLUCOSE 1+ (NEGATIVE)
[2024-01-26 00:22] LABS: BACTERIA,URINE 10-30 (MOD) /HPF (None Seen); MUCUS,URINE 1+ /LPF (None Seen); RBC,URINE 0-5 /HPF (0-5); SQUAMOUS EPITHELIAL CELL,UR 4-10 (MOD) /LPF (0-3 (FEW))
[2024-01-26] MEDS ORDERED: cefTRIAXone 1,000 MG VIAL ONE (00:59)
[2024-01-26] MEDS ORDERED: CIPR500T4 PO (01:55)
[2024-01-26] MEDS ORDERED: IBUP-1842 PO (01:55)
[2024-01-26 02:00] VITALS: O2SAT 99
== END 2024-01-26 02:08 | disposition home or self-care (01) ==
LOC: MED 19:49
DX: N39.0 Urinary tract infection, site not specified (principal); Z79.899 Other long term (current) drug therapy
CPT/HCPCS: 81001; 81025; 87086; 96361; 96365; 96375; 99284; J0696; J1885; J2405; J7030